=== PATIENT | male | born 1975 | race Caucasian/White ===

== ENCOUNTER 2017-01-12 02:07 | Observation (INO) | payer BC ==
[~2017-01-12] VITALS: Ht 177.8 cm; Wt 95.3 kg
[2017-01-12] VITALS (11 sets, daily range): BP systolic 126–175; BP diastolic 85–118; PULSE 79–92; RESP 18; TEMP 98.4; Ht 177.8 cm; Wt 95.3 kg
[~2017-01-12 02:07] MED LIST: albuterol
[2017-01-12] MEDS ORDERED: ASPIRIN 81 MG TAB PO STA (04:03)
[2017-01-12] MEDS ORDERED: LABETALOL HCL 20MG INJ IV ONE ×2 (04:30→06:00)
--- NOTE | 2017-01-12 04:32 | RADRPT ---
PROCEDURE: Chest. CLINICAL INDICATION: Chest pain. TECHNIQUE: Single frontal view of the chest was obtained. COMPARISON: None. FINDINGS: The cardiac silhouette is within normal limits. The aortic arch is unremarkable. There is no focal consolidation, vascular congestion or pleural effusion. There is no pneumothorax. IMPRESSION: No evidence for active cardiopulmonary disease. .Rommel Howard MD, MD Date Time Electronically viewed and signed by .Rommel Howard MD, on 01/12/2017 04:32 .T/
[2017-01-12 04:39] LABS: ADD SCAN DIFF NO
[2017-01-12 04:43] LABS: BASOPHILS % 0.3 % (0.0-2.0); EOSINOPHILS # 0.4 10^3/ul (0.0-0.5); EOSINOPHILS % 5.6 % (0.0-7.0); HEMATOCRIT 44.6 % (42.0-52.0); HEMOGLOBIN 15.8 g/dl (14.0-18.0); LYMPHOCYTES # 1.9 10^3/ul (0.8-2.9); LYMPHOCYTES % 27.2 % (15.0-51.0); MEAN CORPUSCULAR HEMOGLOBIN 34.6 pg (29.0-33.0); MEAN CORPUSCULAR HGB CONC 35.4 g/dl (32.0-37.0); MEAN CORPUSCULAR VOLUME 97.6 fl (82.0-101.0); MEAN PLATELET VOLUME 10.1 fl (7.4-10.4); MONOCYTE # 0.8 10^3/ul (0.3-0.9); MONOCYTES % 10.8 % (0.0-11.0); NEUTROPHILS % 55.5 % (39.0-77.0); PLATELET COUNT 181 10^3/UL (140-415); RED BLOOD COUNT 4.57 10^6/ul (4.70-6.10); RED CELL DISTRIBUTION WIDTH 11.9 % (11.5-14.5); WHITE BLOOD COUNT 7.1 10^3/ul (4.8-10.8)
[2017-01-12 04:59] LABS: INR 0.94; PARTIAL THROMBOPLASTIN TIME 25.5 Sec (25.0-35.0); PROTIME 12.6 Sec (12.2-14.2)
[2017-01-12 05:01] LABS: ANION GAP 14 (8-16); BLOOD UREA NITROGEN 13 mg/dl (7-20); CALCIUM 9.2 mg/dl (8.4-10.2); CARBON DIOXIDE 26 mmol/L (21-31); CHLORIDE 104 mmol/L (97-110); CREATININE 1.06 mg/dl (0.61-1.24); GLUCOSE 104 mg/dl (70-220); POTASSIUM 3.5 mmol/L (3.5-5.1); SODIUM 140 mmol/L (135-144)
[2017-01-12] MEDS ORDERED: MULTI PO (05:13)
[2017-01-12] MEDS ORDERED: BECL8.7A INH (05:13)
[2017-01-12] MEDS ORDERED: IBUP200C PO (05:13)
[2017-01-12] MEDS ORDERED: ALBU18HF INHALATION (05:13)
[2017-01-12 05:16] LABS: TROPONIN-I < 0.012 ng/ml (0.00-0.12)
[2017-01-12] MEDS ORDERED: hydrALAzine 20 MG INJ IV ONE (05:30)
[2017-01-12] MEDS ORDERED: ONDANSETRON 4 MG INJ IV PRN ×2 (06:30→13:00)
[2017-01-12] MEDS ORDERED: ACETAMINOPHEN 325 MG TAB PO PRN ×2 (06:30→13:00)
--- NOTE | 2017-01-12 06:47 | ERA ---
ER Documentation Chief Complaint Date/Time DATE: 01/12/17 TIME: 06:40 Chief Complaint CP "tightness" since 10pm, Denies SOB. -trauma HPI 41-year-old male with a history of asthma and untreated hypertension presenting with chest tightness in the center of his chest. The pain started after he was playing softball tonight. The pain is constant, nonradiating, with no associated shortness of breath, diaphoresis, nausea, or vomiting. He denies any fevers, chills, recent prolonged immobilization, or history of blood clots. ROS All systems reviewed and are negative except as per history of present illness. Medications Home Meds Reported Medications Ibuprofen* (Ibuprofen*) 200 Mg Capsule, 200 MG PO QID Y for PAIN, CAP 01/12/17 Multivitamins* (Theragran*) 1 Tab Tab, 1 TAB PO DAILY, TAB 01/12/17 Beclomethasone Dip* (Qvar 40*) 7.3 Gm Inha, 2 PUFF INH BID, #1 INHALER 01/12/17 Albuterol Sulfate* (Ventolin HFA*) 18 Gm Hfa.aer.ad, 2 PUFF INHALATION Q4H, #1 INHALER 01/12/17 Discontinued Reported Medications [albuterol] No Conflict Check 03/03/13 Allergies Allergies: Coded Allergies: iodine (Unverified Allergy, Unknown, 01/12/17) Uncoded Allergies: PENICILLIN (Allergy, Unknown, 01/12/17) PMhx/Soc History of Surgery: Yes (tonsillectomy) Anesthesia Reaction: No Hx Neurological Disorder: No Hx Respiratory Disorders: Yes (asthma) Hx Cardiac Disorders: No Hx Psychiatric Problems: No Hx Miscellaneous Medical Probl: No Hx Alcohol Use: No Hx Substance Use: No Hx Tobacco Use: No Smoking Status: Never smoker FmHx Family History: other (Hypertension), No diabetes Physical Exam Vitals Vital Signs Date Time Temp Pulse Resp B/P Pulse Ox O2 Delivery O2 Flow Rate FiO2 01/12/17 02:13 98.4 101 20 200/123 96 Physical Exam Const: Well-appearing, no apparent distress Head: Atraumatic Eyes: Normal Conjunctiva ENT: Normal External Ears, Nose and Mouth. Neck: Full range of motion..~ No meningismus. No JVD Resp: Clear to auscultation bilaterally with minimal end expiratory wheezing in the upper lung padron Cardio: Regular rate and rhythm, no murmurs. 2+ distal pulses equal in all 4 extremities Abd: Soft, non tender, non distended. Normal bowel sounds Skin: No petechiae or rashes Back: No midline or flank tenderness Ext: No cyanosis, or edema Neur: Awake and alert and oriented 3, cranial nerves intact, strength and sensations intact in all 4 extremities Psych: Normal Mood and Affect Result Diagram: 01/12/174 01/12/174 Results 24 hrs Laboratory Tests Test 01/12/17 04:24 White Blood Count 7.110^3/ul Red Blood Count 4.5710^6/ul Hemoglobin 15.8g/dl Hematocrit 44.6% Mean Corpuscular Volume 97.6fl Mean Corpuscular Hemoglobin 34.6pg Mean Corpuscular Hemoglobin Concent 35.4g/dl Red Cell Distribution Width 11.9% Platelet Count 43663^3/UL Mean Platelet Volume 10.1fl Neutrophils % 55.5% Lymphocytes % 27.2% Monocytes % 10.8% Eosinophils % 5.6% Basophils % 0.3% Nucleated Red Blood Cells % 0.0/100WBC Neutrophils # 4.010^3/ul Lymphocytes # 1.910^3/ul Monocytes # 0.810^3/ul Eosinophils # 0.410^3/ul Basophils # 0.010^3/ul Nucleated Red Blood Cells # 0.010^3/ul Prothrombin Time 12.6Sec Prothrombin Time Ratio 1.0 INR International Normalized Ratio 0.94 Activated Partial Thromboplast Time 25.5Sec Sodium Level 140mmol/L Potassium Level 3.5mmol/L Chloride Level 104mmol/L Carbon Dioxide Level 26mmol/L Anion Gap 14 Blood Urea Nitrogen 13mg/dl Creatinine 1.06mg/dl Glucose Level 104mg/dl Calcium Level 9.2mg/dl Troponin I < 0.012ng/ml Current Medications Medications (Trade) Dose Ordered Sig/Saran Route PRN Reason Start Time Stop Time Status Last Admin Dose Admin Aspirin (Aspirin) 162 mg ONCE STAT PO 01/12/17 04:03 01/12/17 04:04 DC 01/12/17 04:31 Labetalol HCl (Labetalol) 20 mg ONCE ONCE IV 01/12/17 04:30 01/12/17 04:31 DC 01/12/17 04:31 Hydralazine HCl (Apresoline) 10 mg ONCE ONCE IV 01/12/17 05:30 01/12/17 05:31 DC 01/12/17 05:25 Labetalol HCl (Labetalol) 20 mg ONCE ONCE IV 01/12/17 06:00 01/12/17 06:01 DC 01/12/17 06:30 Ondansetron HCl (Zofran Inj) 4 mg ER BRIDGE PRN IV NAUSEA AND/OR VOMITING 01/12/17 06:30 01/13/17 06:29 Acetaminophen (Tylenol Tab) 650 mg ER BRIDGE PRN PO MILD PAIN/FEVER 01/12/17 06:30 01/13/17 06:29 Procedures/MDM EKG #1: Rate/Rhythm: Normal Sinus Rhythm QRS, ST, T-waves: Anterior Q waves, no changes consistent w/ acute ischemia Impression: No evidence of ischemia or arrhythmia EKG #2: Rate/Rhythm: Normal Sinus Rhythm QRS, ST, T-waves: Anterior Q waves, no changes consistent w/ acute ischemia Impression: No evidence of ischemia or arrhythmia Chest x-ray shows no acute abnormalities Labs CBC: no anemia or evidence of infection BMP: No evidence of electrolyte abnormality, renal failure, hypoglycemia Troponin within normal limits MDM Patient is presenting with chest pain and severe hypertension. EKG does not show evidence of acute ischemia. Troponin was within normal limits. Labetalol 20 mg IV was given with improvement of the systolic blood pressure, however and there was no improvement of the diastolic blood pressure. Hydralazine 10 mg IV was given subsequently and he had no improvement in his blood pressure. He continues to have chest pain. Aspirin was given. I do not think the patient is stable for discharge at this time and will require close inpatient blood pressure monitoring, treatment, and ACS rule out. His clinical picture is consistent with hypertensive urgency versus emergency, The latter being less likely. I have a lower suspicion for aortic dissection or pulmonary embolism. Patient will be admitted to the telemetry unit. Critical Care Time: 40 minutes Treatments/Evaluations: Close monitoring and treatment of unstable vital signs, cardiorespiratory, and neurologic status, while maintaining tight balance of fluid, respiratory, and cardiac interventions. This time includes discussing the case with the patient and the patients family. This time does not include all procedures stated elsewhere in this record. This time also includes reviewing old records, labs and radiological studies. This time includes examining and re-examining the patient. Additionally, this time also includes arranging care with admitting and consulting physicians. Accepting Care Team: Current data and ongoing care discussed. Time: Time of admission Primary Provider: Timi Consulting: None Outstanding Data: none Departure Diagnosis: Primary Impression: Chest pain Qualified Code: R07.9 - Chest pain, unspecified type Additional Impression: Hypertensive urgency Condition: Serious EKSEAN BROOKS MD Jan 12, 2017 06:46
[2017-01-12] MEDS ORDERED: hydrALAzine 20 MG INJ IV PRN (08:30)
[2017-01-12 11:02] LABS: CREATINE KINASE 107 IU/L (23-200)
[2017-01-12 11:21] LABS: CK-MB 0.37 ng/ml (0.0-2.4); TROPONIN-I < 0.012 ng/ml (0.00-0.12)
[2017-01-12] MEDS ORDERED: ALBUTEROL/IPRATROPIUM (NEB) 3 ML AMP HHN PRN ×2 (11:30→13:00)
[2017-01-12] MEDS ORDERED: SOD CHLORIDE 0.45% 1,000 ML IV SCH (12:43)
[2017-01-12] MEDS ORDERED: DOCUSATE SODIUM 100 MG CAP PO PRN (13:00)
[2017-01-12] MEDS ORDERED: NITROGLYCERIN (SL) 0.4 MG TAB SL PRN (13:00)
[2017-01-12] MEDS ORDERED: AMLODIPINE 5 MG TAB PO SCH (13:00)
[2017-01-12] MEDS ORDERED: HEPARIN 5,000 UNIT/0.5 ML VIAL SC SCH (13:00)
[2017-01-12] MEDS ORDERED: HYDROCODONE/APAP (5/325) TAB PO PRN (13:00)
[2017-01-12] MEDS ORDERED: NA PHOSPHATE/BIPHOS 133 ML ENEMA PR PRN (13:00)
[2017-01-12] MEDS ORDERED: morphine 2 MG INJ IV PRN (13:00)
[2017-01-12] MEDS ORDERED: NACL 0.9% 3 ML SYG IV SCH (13:00)
[2017-01-12] MEDS ORDERED: LORAZEPAM 2 MG INJ IV PRN (13:00)
[2017-01-12] MEDS ORDERED: MAGNESIUM HYDROXIDE 30ML CUP PO PRN (13:00)
[2017-01-12 14:29] LABS: CREATINE KINASE 96 IU/L (23-200)
--- NOTE | 2017-01-12 14:40 | RADRPT ---
Echocardiogram Report Patient Name: MELISSA AJ Gender: Male Date: 1975 Study Date: 12-Jan-2017 Flatwork Finisher: Asif Bates [facility] Location: [facility] Ref. Physician: LIZETT CODY Quality: Good Procedures: Transthoracic echocardiogram with complete 2D, M-Mode, and doppler examination. Indications: Chest Pain. 2D/M Mode Doppler Measurement Value Normal Ranges Measurement Value Normal Ranges LVIDd 2D 4.1 3.5 - 5.6 cm AV Peak Cade 1.7 m/sec LVIDs 2D 2.0 2.1 - 4.1 cm AV Peak PG 11.1 mmHg LVPWd 2D 1.2 0.6 - 1.1 cm LVOT Peak Cade 1.4 m/sec IVSd 2D 1.2 0.6 - 1.1 cm LVOT Peak PG 7.6 mmHg AoR Diam 2D 2.7 2.0 - 3.7 cm MV E Peak Cade 0.7 m/sec EDV 2D 75.4 cm3 MV A Peak Cade 1.0 m/sec ESV 2D 7.9 cm3 MV E/A 0.7 LA Dimen 2D 2.6 2.3 - 4.0 cm MV Decel Time 180 msec MV Decel [place] 4 MV E/A 0.7 TR Peak Cade 2.5 m/sec TR Peak PG 25.8 mmHg RVSP 29.0 mmHg Findings Left Ventricle: Normal left ventricular systolic function. Normal left ventricular cavity size. Mild concentric left ventricular hypertrophy. Ejection fraction is visually estimated at 65 %. Tissue Doppler/Mitral Doppler indices are consistent with impaired relaxation (Stage I diastolic dysfunction). Right Ventricle: Normal right ventricular size. Normal right ventricular systolic function. Left Atrium: The left atrium is normal in size. Right Atrium: The right atrium is normal in size. Mitral Valve: Normal appearance and function of the mitral valve with trace physiologic regurgitation. Aortic Valve: Normal appearance of the aortic valve. No significant aortic stenosis or insufficiency. Tricuspid Valve: Normal appearance of the tricuspid valve. Estimated peak PA systolic pressure 29 mmHg. There is trace tricuspid regurgitation. Pulmonic Valve: Normal pulmonic valve appearance. Pericardium: Normal pericardium with no significant pericardial effusion. Aorta: Normal aortic root. IVC: Normal size and normal respiratory collapse consistent with normal right atrial pressure. Conclusions 1.Normal left ventricular systolic function. Normal left ventricular cavity size. Mild concentric left ventricular hypertrophy. Ejection fraction is visually estimated at 65 %. Tissue Doppler/Mitral Doppler indices are consistent with impaired relaxation (Stage I diastolic dysfunction). 2.Normal right ventricular size. Normal right ventricular systolic function. 3.The left atrium is normal in size. 4.The right atrium is normal in size. 5.No significant valvular stenosis or regurgitation seen. 6.Normal pericardium with no significant pericardial effusion. Electronically Signed By: Corey Castellon 12-Jan-2017 14:39:50 -0700 Patient Name: MELISSA AJ Study Date: 12-Jan-2017 [id number]
[2017-01-12 14:45] LABS: CK-MB 0.28 ng/ml (0.0-2.4); TROPONIN-I < 0.012 ng/ml (0.00-0.12)
--- NOTE | 2017-01-12 15:38 | HP ---
Date/Time of Note Date/Time of Note DATE: 01/12/17 TIME: 15:24 Assessment/Plan VTE Prophylaxis VTE Prophylaxis Intervention: heparin Lines/Catheters IV [facility] Saline Lock Assessment/Plan Chief Complaint/Hosp Course Assessment and plan: 41-year-old male with chest pain, hypertensive urgency. 1. Chest pain: Patient has positive family history for both stroke and heart attack. He does smoke cigars every 2 weeks for the last 5 years. Also 5 times a week alcohol use. Has not been taking blood pressure medicines despite having a diagnosis of hypertension for many years. -Admit to telemetry, rule out acute coronary syndrome, trend troponins, check TSH A1c lipid panel. Start calcium channel norris. Get cardiology consult, check 2D echocardiogram as well. Patient likely would benefit from stress test, will discuss with cardiology team 2. Hypertensive urgency: Blood pressure slightly improved. See #1 -Continue hydralazine as needed, also being started on calcium channel norris daily 3. Asthma: Duo nebs as needed 4. Anxiety: Ativan as needed 5. GI prophylaxis: PPI 6. DVT prophylaxis: Heparin subQ Problems: HPI/ROS Admit Date/Time Admit Date/Time Jan 12, 2017 at 06:24 Hx of Present Illness 41-year-old male past medical history of hypertension, not taking any blood pressure medicines, asthma, anxiety, whose been having substernal chest pain. Began around midnight tonight. Patient states he was playing softball yesterday evening and noticed some mild discomfort but the pain became severe at midnight so a constant nature nonradiating. He says he has had this pain before occurred about 1 year ago when he was weightlifting, but never this severe. He took some ibuprofen which did not really give him any relief of symptoms. Denies any fever or chills no upper lower GI bleeding, no headaches or vision changes, no fever or chills, no nausea vomiting. When he came into the ER today he was found with hypertensive urgency systolic blood pressure over 200. PMH/Family/Social Past Medical History Medical History: hypertension, other Past Surgical History Past Surgical Hx: other (tonsils) Family History Significant Family History: other (CVA (Dad), [place] (Mom)) Social History Alcohol Use: other (5x/wk scotch/wine) Smoking Status: Current some day smoker Drug Use: none Exam/Review of Systems Vital Signs Vitals Vital Signs Date Time Temp Pulse Resp B/P Pulse Ox O2 Delivery O2 Flow Rate FiO2 01/12/17 13:58 88 16 94 21 01/12/17 13:52 168/101 01/12/17 12:00 98.7 01/12/17 06:46 Room Air Exam Exam General: Lying in bed answering questions appropriately, slightly anxious, alert HEENT: Pupils equal round reactive to light extraocular muscles are intact Neck: Supple Respiratory: Clear to auscultation bilaterally Cardiovascular: S1-S2 heard no rubs or gallops GI: Soft, nontender, nondistended, normal bowel sounds, no rebound or guarding Muscular skeletal: No lower extremity edema bilaterally Neurologic: No focal deficits Labs Result Diagram: 01/12/1742301/12/17423 Medications Medications Current Medications Hydralazine HCl (Apresoline) 10 mg Q6H PRN IV ELEVATED SYSTOLIC BP Last administered on 01/12/17 08:59; Admin Dose 10 MG; Start 01/12/17 at 08:30 Ondansetron HCl (Zofran Inj) 4 mg Q6H PRN IV NAUSEA AND/OR VOMITING; Start 01/12 at 13:00 Acetaminophen (Tylenol Tab) 650 mg Q6H PRN PO PAIN LEVEL 1-3 OR FEVER; Start at 13:00 Acetaminophen/ Hydrocodone Bitart ([place] (5/325)) 1 tab Q6H PRN PO MODERATE PAIN LEVEL 4-6; Start 01/12/17 at 13:00 Morphine Sulfate (morphine) 2 mg Q4H PRN IV SEVERE PAIN LEVEL 7-10; Start at 13:00 Docusate Sodium (Colace) 100 mg Q12H PRN PO CONSTIPATION; Start 01/12/17 at 13: 00 Magnesium Hydroxide (Milk Of Mag) 30 ml DAILY PRN PO CONSTIPATION; Start at 13:00 Sodium Biphosphate/ Sodium Phosphate (Fleet Enema) 133 ml DAILY PRN [place] CONSTIPATION; Start 01/12/17 at 13:00 Pantoprazole (Protonix Tab) 40 mg DAILY@06 PO ; Start 01/13/17 at 06:00 Heparin Sodium (Porcine) 5000 unit 5,000 unit Q12 SC Last administered on 13:51; Admin Dose 5,000 UNIT; Start 01/12/17 at 13:00 Sodium Chloride (1/2 NS) 1,000 ml @ 75 mls/hr [id number] IV Last administered on 01/12/17 13:39; Admin Dose 75 MLS/HR; Start 01/12/17 at 12:43 Lorazepam (Ativan) 0.5 mg Q6H PRN IV ANXIETY; Start 01/12/17 at 13:00 Clonidine (Catapres) 0.1 mg Q6H PRN PO ELEVATED BLOOD PRESSURE; Start 01/12/17 at 13:00 Nitroglycerin (Nitroglycerin (Sl Tab) 0.4 Mg) 1 tab Q5M PRN SL ANGINA; Start at 13:00 Amlodipine Besylate (Norvasc) 5 mg DAILY PO Last administered on 01/12/17 13:43 ; Admin Dose 5 MG; Start 01/12/17 at 13:00 LIZETT CODY Jan 12, 2017 15:38
--- NOTE | 2017-01-12 15:38 | CONS ---
Date/Time of Note Date/Time of Note DATE: 01/12/17 TIME: 15:31 Assessment/Plan Assessment/Plan Additional Assessment/Plan Chest wall pain Preserved left ventricular systolic function Mild left ventricular hypertrophy Hypertension, uncontrolled Alcohol and tobacco use -Patient's chest discomfort is elicited with movements and palpation of the chest wall. Serial cardiac enzymes have remained negative, ECG without any significant ischemic abnormalities and echocardiogram with preserved ejection fraction. Patient's blood pressure is uncontrolled. Does have a known history of hypertension and he states he was recommended medications in the past but has not taken. There is also evidence of mild left ventricular hypertrophy on echocardiogram. Given the above, would recommend initiating lisinopril 10 mg daily with close outpatient follow-up for blood pressure and renal function. Otherwise given the atypical nature of his symptoms and negative ECG and troponins, no further inpatient cardiac workup needed at the current time. Smoking and tobacco cessation recommended. Consultation Date/Type/Reason Admit Date/Time Jan 12, 2017 at 06:24 Type of Consultation: cv Reason for Consultation Hypertension and chest pain Hx of Present Illness This is a 41-year-old male with past medical history of hypertension, asthma, anxiety who presents with chest discomfort and hypertension. Patient was playing softball on the day of admission. He does admit to strenuous activity during the game. He also does admit to not stretching before the game. Approximately 3 hours after he finished playing, develop an aching like sensation in the mid chest. The pain was worse with right arm movements and turning from side to side. There was no associated shortness of breath, dizziness or lightheadedness. He denies symptoms of chest discomfort during the actual softball game and with the strenuous activity. Because of his symptoms, he felt he became more anxious and came to the hospital for further evaluation and care. Patient was hypertensive upon initial evaluation with systolic blood pressure above 200. Since admission, his chest discomfort did improve but is still present. Pain is worse with palpation of the chest wall and leaning forward and improved with leaning back. He otherwise denies exertional chest pain or shortness of breath prior to this, dizziness or lightheadedness. 12 point review of systems was performed with all pertinent positives and negatives mentioned above and all else is negative Past Medical History Asthma Anxiety Medical History: hypertension Past Surgical History Tonsillectomy Family History Significant Family History: other (Mother with stent placement in her 60s, father with CVA in his 60s) Social History Alcohol Use: other (Drinks approximately 2-3 alcoholic beverages on a daily basis) Smoking Status: Current some day smoker Drug Use: none Other Social History Lives at home Exam/Review of Systems Vital Signs Vitals Vital Signs Date Time Temp Pulse Resp B/P Pulse Ox O2 Delivery O2 Flow Rate FiO2 01/12/17 15:26 99.1 92 18 160/108 96 Room Air 01/12/17 13:58 21 Exam No apparent distress, able to give history Constitutional: alert, oriented Head: normocephalic Neck: other (No bruit), supple Respiratory: clear to auscultation, normal air movement Cardiovascular: other (S1-S2 heard, no murmurs appreciated), regular rate and rhythm Gastrointestinal: bowel sounds, non-tender, other (No guarding), soft Musculoskeletal: other (Chest wall is tender to palpation in mid chest and right side) Extremities: other (No edema) Results Result Diagram: 01/12/17 0424 01/12/17 0424 Results 24 hrs Laboratory Tests Test 01/12/17 04:24 01/12/17 10:10 01/12/17 13:40 White Blood Count 7.1 Red Blood Count 4.57 L Hemoglobin 15.8 Hematocrit 44.6 Mean Corpuscular Volume 97.6 Mean Corpuscular Hemoglobin 34.6 H Mean Corpuscular Hemoglobin Concent 35.4 Red Cell Distribution Width 11.9 Platelet Count 181 Mean Platelet Volume 10.1 Neutrophils % 55.5 Lymphocytes % 27.2 Monocytes % 10.8 Eosinophils % 5.6 Basophils % 0.3 Nucleated Red Blood Cells % 0.0 Neutrophils # 4.0 Lymphocytes # 1.9 Monocytes # 0.8 Eosinophils # 0.4 Basophils # 0.0 Nucleated Red Blood Cells # 0.0 Prothrombin Time 12.6 Prothrombin Time Ratio 1.0 INR International Normalized Ratio 0.94 Activated Partial Thromboplast Time 25.5 Sodium Level 140 Potassium Level 3.5 Chloride Level 104 Carbon Dioxide Level 26 Anion Gap 14 Blood Urea Nitrogen 13 Creatinine 1.06 Glucose Level 104 Calcium Level 9.2 Troponin I < 0.012 < 0.012 < 0.012 Creatine Kinase 107 96 Creatine Kinase Index 0.3 0.3 Creatinine Kinase MB (Mass) 0.37 0.28 Free Thyroxine 1.05 Medications Medications Current Medications Hydralazine HCl (Apresoline) 10 mg Q6H PRN IV ELEVATED SYSTOLIC BP Last administered on 01/12/17 08:59; Admin Dose 10 MG; Start 01/12/17 at 08:30 Ondansetron HCl (Zofran Inj) 4 mg Q6H PRN IV NAUSEA AND/OR VOMITING; Start 01/12 at 13:00 Acetaminophen (Tylenol Tab) 650 mg Q6H PRN PO PAIN LEVEL 1-3 OR FEVER; Start at 13:00 Acetaminophen/ Hydrocodone Bitart ([place] (5/325)) 1 tab Q6H PRN PO MODERATE PAIN LEVEL 4-6; Start 01/12/17 at 13:00 Morphine Sulfate (morphine) 2 mg Q4H PRN IV SEVERE PAIN LEVEL 7-10; Start at 13:00 Docusate Sodium (Colace) 100 mg Q12H PRN PO CONSTIPATION; Start 01/12/17 at 13: 00 Magnesium Hydroxide (Milk Of Mag) 30 ml DAILY PRN PO CONSTIPATION; Start at 13:00 Sodium Biphosphate/ Sodium Phosphate (Fleet Enema) 133 ml DAILY PRN [place] CONSTIPATION; Start 01/12/17 at 13:00 Pantoprazole (Protonix Tab) 40 mg DAILY@06 PO ; Start 01/13/17 at 06:00 Heparin Sodium (Porcine) 5000 unit 5,000 unit Q12 SC Last administered on 13:51; Admin Dose 5,000 UNIT; Start 01/12/17 at 13:00 Sodium Chloride (1/2 NS) 1,000 ml @ 75 mls/hr [id number] IV Last administered on 01/12/17 13:39; Admin Dose 75 MLS/HR; Start 01/12/17 at 12:43 Lorazepam (Ativan) 0.5 mg Q6H PRN IV ANXIETY; Start 01/12/17 at 13:00 Clonidine (Catapres) 0.1 mg Q6H PRN PO ELEVATED BLOOD PRESSURE; Start 01/12/17 at 13:00 Nitroglycerin (Nitroglycerin (Sl Tab) 0.4 Mg) 1 tab Q5M PRN SL ANGINA; Start at 13:00 Amlodipine Besylate (Norvasc) 5 mg DAILY PO Last administered on 7/6/17at 13:43 ; Admin Dose 5 MG; Start 01/12/17 at 13:00 Procedures Procedures ECG demonstrates sinus rhythm at 74 bpm, QRS 94 ms, no significant ischemic STT wave abnormalities Corey Castellon DO Jan 12, 2017 15:37
[2017-01-12] MEDS ORDERED: LISINOPRIL 10 MG TAB PO SCH (16:00)
--- NOTE | 2017-01-12 17:12 | PDOCDIS ---
Discharge Instructions CONDITION Patient Condition: Stable HOME CARE INSTRUCTIONS: Diet Instructions: Low Fat /Cholesterol ACTIVITY: Activity Restrictions: Slowly Increase Activity FOLLOW UP/APPOINTMENTS Follow-up Plan Please take your medicines as prescribed. If you notice any further chest pain , please go to the ER, call 911, or go to your primary care doctor. LIZETT CODY Jan 12, 2017 17:12
[2017-01-12] MEDS ORDERED: LISI10TA2 PO (17:13)
--- NOTE | 2017-01-12 17:21 | DS ---
Date/Time of Note Date/Time of Note DATE: 01/12/17 TIME: 17:18 Discharge Summary Admission/Discharge Info Admit Date/Time Jan 12, 2017 at 06:24 Discharge Date/Time Discharge Diagnosis Chest pain -possibly secondary to musculoskeletal in origin. Ruled out acute coronary syndrome. 2. Hypertensive urgency: Blood pressure improved. 3. Asthma 4. Anxiety Hx of Present Illness 41-year-old male past medical history of hypertension, not taking any blood pressure medicines, asthma, anxiety, whose been having substernal chest pain. Began around midnight tonight. Patient states he was playing softball yesterday evening and noticed some mild discomfort but the pain became severe at midnight so a constant nature nonradiating. He says he has had this pain before occurred about 1 year ago when he was weightlifting, but never this severe. He took some ibuprofen which did not really give him any relief of symptoms. Denies any fever or chills no upper lower GI bleeding, no headaches or vision changes, no fever or chills, no nausea vomiting. When he came into the ER today he was found with hypertensive urgency systolic blood pressure over 200. Patient was admitted and seen by cardiology team, he ruled out for acute coronary syndrome, it was thought that his symptoms might be secondary more to musculoskeletal in origin. He was started on ROGER inhibitor as well to help control his blood pressure. ECHO: Conclusions 1. Normal left ventricular systolic function. Normal left ventricular cavity size. Mild concentric left ventricular hypertrophy. Ejection fraction is visually estimated at 65 %. Tissue Doppler/Mitral Doppler indices are consistent with impaired relaxation (Stage I diastolic dysfunction). 2. Normal right ventricular size. Normal right ventricular systolic function. 3. The left atrium is normal in size. 4. The right atrium is normal in size. 5. No significant valvular stenosis or regurgitation seen. 6. Normal pericardium with no significant pericardial effusion. Patient will be discharged home today in improved condition, given strict return precautions if his chest pain worsens, told to be compliant with his medicines, follow up with her primary care doctor in the clinic in the next 1-2 weeks. Please see medical reconciliation list for full medicine discharge list. Hospital Course Assessment and plan: 41-year-old male with chest pain, hypertensive urgency. 1. Chest pain: Patient has positive family history for both stroke and heart attack. He does smoke cigars every 2 weeks for the last 5 years. Also 5 times a week alcohol use. Has not been taking blood pressure medicines despite having a diagnosis of hypertension for many years. -Admit to telemetry, rule out acute coronary syndrome, trend troponins, check TSH A1c lipid panel. Start calcium channel norris. Get cardiology consult, check 2D echocardiogram as well. Patient likely would benefit from stress test, will discuss with cardiology team 2. Hypertensive urgency: Blood pressure slightly improved. See #1 -Continue hydralazine as needed, also being started on calcium channel norris daily 3. Asthma: Duo nebs as needed 4. Anxiety: Ativan as needed 5. GI prophylaxis: PPI 6. DVT prophylaxis: Heparin subQ Home Meds Active Scripts Lisinopril* (Lisinopril*) 10 Mg Tablet, 10 MG PO DAILY, #30 TAB 4 Refills Prov:GLOLIZETT 01/12/17 Reported Medications Ibuprofen* (Ibuprofen*) 200 Mg Capsule, 200 MG PO QID Y for PAIN, CAP 01/12/17 Multivitamins* (Theragran*) 1 Tab Tab, 1 TAB PO DAILY, TAB 01/12/17 Beclomethasone Dip* (Qvar 40*) 7.3 Gm Inha, 2 PUFF INH BID, #1 INHALER 01/12/17 Albuterol Sulfate* (Ventolin HFA*) 18 Gm Hfa.aer.ad, 2 PUFF INHALATION Q4H, #1 INHALER 01/12/17 Discontinued Reported Medications [albuterol] No Conflict Check 03/03/13 Primary Care Provider Care Physician No Primary Time spent on discharge: > 30 minutes Pending Labs Laboratory Tests Test 01/12/17 04:24 01/12/17 10:10 01/12/17 13:40 White Blood Count 7.110^3/ul (4.8-10.8) Red Blood Count 4.5710^6/ul (4.70-6.10) Hemoglobin 15.8g/dl (14.0-18.0) Hematocrit 44.6% (42.0-52.0) Mean Corpuscular Volume 97.6fl (82.0-101.0) Mean Corpuscular Hemoglobin 34.6pg (29.0-33.0) Mean Corpuscular Hemoglobin Concent 35.4g/dl (32.0-37.0) Red Cell Distribution Width 11.9% (11.5-14.5) Platelet Count 98040^3/UL (140-415) Mean Platelet Volume 10.1fl (7.4-10.4) Neutrophils % 55.5% (39.0-77.0) Lymphocytes % 27.2% (15.0-51.0) Monocytes % 10.8% (0.0-11.0) Eosinophils % 5.6% (0.0-7.0) Basophils % 0.3% (0.0-2.0) Nucleated Red Blood Cells % 0.0/100WBC (0.0-0.0) Neutrophils # 4.010^3/ul (1.6-7.5) Lymphocytes # 1.910^3/ul (0.8-2.9) Monocytes # 0.810^3/ul (0.3-0.9) Eosinophils # 0.410^3/ul (0.0-0.5) Basophils # 0.010^3/ul (0.0-0.1) Nucleated Red Blood Cells # 0.010^3/ul (0.0-0.0) Prothrombin Time 12.6Sec (12.2-14.2) Prothrombin Time Ratio 1.0 INR International Normalized Ratio 0.94 Activated Partial Thromboplast Time 25.5Sec (25.0-35.0) Sodium Level 140mmol/L (135-144) Potassium Level 3.5mmol/L (3.5-5.1) Chloride Level 104mmol/L (97-110) Carbon Dioxide Level 26mmol/L (21-31) Anion Gap 14 (8-16) Blood Urea Nitrogen 13mg/dl (7-20) Creatinine 1.06mg/dl (0.61-1.24) Glucose Level 104mg/dl (70-220) Calcium Level 9.2mg/dl (8.4-10.2) Troponin I < 0.012ng/ml (0.00-0.12) < 0.012ng/ml (0.00-0.12) < 0.012ng/ml (0.00-0.12) Creatine Kinase 107IU/L (23-200) 96IU/L (23-200) Creatine Kinase Index 0.3 0.3 Creatinine Kinase MB (Mass) 0.37ng/ml (0.0-2.4) 0.28ng/ml (0.0-2.4) Free Thyroxine 1.05ng/dl (0.64-1.79) LIZETT CODY Jan 12, 2017 17:21
[2017-01-12 18:03] LABS: CREATINE KINASE 99 IU/L (23-200)
[2017-01-12 18:20] LABS: CK-MB 0.28 ng/ml (0.0-2.4); TROPONIN-I < 0.012 ng/ml (0.00-0.12)
[2017-01-13] MEDS ORDERED: PANTOPRAZOLE (EC) 40 MG TAB PO SCH (06:00)
== END 2017-01-12 18:26 | disposition home or self-care (01) ==
LOC: E/R 02:07 → TEL 06:24 → INTOOBSV 06:24
PROVIDERS: ADMIT Family Medicine; ATTEND Family Medicine
DX: R07.9 Chest pain, unspecified (principal); I10 Essential (primary) hypertension; J45.909 Unspecified asthma, uncomplicated; F41.9 Anxiety disorder, unspecified; F17.200 Nicotine dependence, unspecified, uncomplicated
CPT/HCPCS: 36415; 71010; 80048; 82550; 82553; 84439; 84484; 85025; 85610; 85730; 93005; 93306; 94664; 96374; 96375; 96376; 99291; G0378; J0360; J1644